=== PATIENT | male | born 1975 | race African-American/Black ===

== ENCOUNTER 2016-06-28 08:40 | Day surgery (SDC) | payer MEDICARE, OTHER ==
--- NOTE | ~2016-06-28 | OP ---
Record Of Operation [facility] [address] [place]. [address] NAME: KENDALL MUÑOZ : 75 STATUS : [place] [facility] [place]#: [id number] AGE: 40 ADM/REG DATE : 06/28/16 MR#: [id number] REPORT SERV DATE: 06/28/16 DICTATED BY: GANESH LOPEZ DATE: 06/28/16 REPORT STATUS : Draft TRANSCRIBED BY: MODL DATE: 06/28/16 DATE OF PROCEDURE: 06/28/2016 PREOPERATIVE DIAGNOSES: 1. End-stage renal disease. 2. Obesity. 3. Deep arteriovenous fistula. POSTOPERATIVE DIAGNOSES: 1. End-stage renal disease. 2. Obesity. 3. Deep arteriovenous fistula. PROCEDURE: Elevation of the left upper extremity AV fistula with a bovine pericardial patch angioplasty. SURGEON: Ganesh Lopez M.D. NUCLEAR MEDICINE OFFICER: Donald Cowart. ANESTHESIA: General. INDICATIONS: The patient is a 40-year-old gentleman with a history of end-stage renal disease that has necessitated dialysis via a PermCath. I placed a left brachiocephalic fistula, but they were unable to use it because his body habitus has made the fistula deep. Thus, he was consented for elevation. DESCRIPTION OF PROCEDURE: After informed consent was obtained, the patient was taken to the operating room and placed in the supine position on the operating room table. He was intubated and general anesthesia was administered. The patient's left upper extremity was prepped and draped in the usual sterile fashion. A longitudinal skin incision was made overlying the fistula. I dissected out the fistula, which was extremely scarred in. The fistula was sizeable, with the exception of a couple of areas that had stenosis. One area was particularly long. I ligated and divided the branches and elevated the fistula. I closed the subcutaneous tissue underneath it. I systemically heparinized. I clamped the fistula. I created a longitudinal fistulotomy. I sewed on a bovine pericardial patch that was tailored to the fistulotomy. I flushed of air and debris before tying down the sutures. I achieved hemostasis. I washed out the wound and closed it in layers. The patient tolerated the procedure well without any intraprocedural complications noted. BRANDYN/MIGUEL Ganesh Lopez M.D. Record Of Operation [facility] [address] [address] NAME: KENDALL MUÑOZ : 75 STATUS : [place] [facility] PAT#: [id number] AGE: 40 ADM/REG DATE : 06/28/16 MR#: [id number] REPORT SERV DATE: 06/28/16 DICTATED BY: GANESH LOPEZ DATE: 06/28/16 REPORT STATUS : Draft TRANSCRIBED BY: MODL DATE: 06/28/16 / [id number] CC: Mónica Diaz PAUL E Joseph Watlington, M.D.
[~2016-06-28 08:40] MED LIST: ABILIFY20 MG PO; CARDU2 PO; CAT2 PO; HABIT21 TOP; LACT30UDL PO; LIPITOR20 PO; LOP50 PO; MAX25 PO; NXL9 PO; SEROQUEL400 MG PO; T PO; TRILEPTAL600 MG PO; VENTOLIN HFA PO
[2016-06-28 10:13] LABS: CALCIUM, SERUM 9.4 MG/DL (8.5-10.4); CHLORIDE, SERUM 99 MMOL/L (96-112); CO2 (CARBON DIOXIDE) 26 MMOL/L (24-34); GFR AFRICAN AMERICAN 8 ML/MIN (>=60); GFR NON AFRICAN AMERICAN 7 ML/MIN (>=60); GLUCOSE, SERUM 82 MG/DL (60-99); POTASSIUM, SERUM 4.3 MMOL/L (3.5-5.3); SODIUM, SERUM 137 MMOL/L (135-148)
[2016-06-28 10:14] LABS: BUN (BLOOD UREA NITROGEN) 38 MG/DL (6-23); CREATININE 8.78 MG/DL (0.70-1.30)
[2016-06-28 10:57] LABS: HEMOGLOBIN 11.1 g/dL (13.6-17.8)
[2016-06-28 11:03] LABS: HEMATOCRIT 32.8 % (40.0-51.0)
[2016-06-28 16:24] LABS: BASOPHILS 0.2 %; BASOPHILS ABSOLUTE 0.02 10/3/uL (0.0-0.16); EOSINOPHILS 0.9 %; EOSINOPHILS ABSOLUTE 0.08 10/3/uL (0.0-0.53); HEMATOCRIT 33.5 % (40.0-51.0); HEMOGLOBIN 11.5 g/dL (13.6-17.8); IMMATURE GRANULOCYTES 0.3 %; IMMATURE GRANULOCYTES ABSOLUTE 0.03 10/3/uL (0.0-0.11); LYMPHOCYTES 12.6 %; MEAN CORPUS HGB CONC 34.3 g/dL (32.0-36.0); MEAN CORPUSCULAR HEMOGLOB 32.6 pg (26.0-34.0); MEAN PLATELET VOLUME 9.5 fL (9.2-13.0); MONOCYTES 1.9 %; MONOCYTES ABSOLUTE 0.17 10/3/uL (0.21-1.20); NEUTROPHILS 84.1 %; NEUTROPHILS ABSOLUTE 7.32 10/3/uL (2.02-8.40); PLATELET COUNT 230 10/3/uL (150-400); RBC DISTRIBUTION WIDTH 14.3 % (12.0-16.0); RED CELL COUNT 3.53 10/6/uL (4.7-6.1); WHITE BLOOD CELLS 8.7 10/3/uL (4.5-10.5)
[2016-06-28 16:29] LABS: MANUAL DIFF NO %; MEAN CORPUSCULAR VOLUME 94.9 fL (80-100)
[2016-06-28 16:43] LABS: ALBUMIN 3.5 G/DL (3.5-5.0); BUN (BLOOD UREA NITROGEN) 41 MG/DL (6-23); CALCIUM, SERUM 9.2 MG/DL (8.5-10.4); CHLORIDE, SERUM 101 MMOL/L (96-112); CO2 (CARBON DIOXIDE) 27 MMOL/L (24-34); CREATININE 9.21 MG/DL (0.70-1.30); GFR AFRICAN AMERICAN 7 ML/MIN (>=60); GFR NON AFRICAN AMERICAN 6 ML/MIN (>=60); GLUCOSE, SERUM 87 MG/DL (60-99); PHOSPHORUS, SERUM 6.4 MG/DL (2.5-4.5); POTASSIUM, SERUM 4.4 MMOL/L (3.5-5.3); SODIUM, SERUM 139 MMOL/L (135-148)
== END 2016-06-28 23:59 | disposition home or self-care (01) ==
LOC: SDC 08:40
PROVIDERS: Internal Medicine Nephrology; Surgery
PROC: 03180ZD Bypass Left Brachial Artery to Upper Arm Vein, Open Approach (ICD-10-PCS; principal; 2016-06-28 07:45)
DX: T82.520A Displacement of surgically created arteriovenous fistula, initial encounter (principal); I12.0 Hypertensive chronic kidney disease with stage 5 chronic kidney disease or end stage renal disease; N18.6 End stage renal disease; E66.9 Obesity, unspecified; J44.9 Chronic obstructive pulmonary disease, unspecified; J45.909 Unspecified asthma, uncomplicated; F41.9 Anxiety disorder, unspecified; Z87.891 Personal history of nicotine dependence; Z68.42 Body mass index [BMI] 45.0-49.9, adult; Z91.030 Bee allergy status; Z79.899 Other long term (current) drug therapy; F31.9 Bipolar disorder, unspecified; Z98.890 Other specified postprocedural states
CPT/HCPCS: 36415; 36832; 80048; 80069; 83735; 85014; 85018; 85025; 86850; 86900; 86901; 93005; A9270-GY; C1768; G0257; J0690; J2250; J2370; J2405; J2710; J3010